=== PATIENT | male | born 2000 | race Caucasian/White ===

== ENCOUNTER 2023-03-31 20:08 | Emergency (ER) | payer OTHER ==
[2023-03-31] MEDS ORDERED: Morphine 4 MG/ML VIAL ONE (20:56)
[2023-03-31] MEDS ORDERED: PROPOFOL 20 ML ONE (21:15)
== END 2023-03-31 22:20 | disposition home or self-care (01) ==
LOC: CSHERS 20:08
DX: S43.015A Anterior dislocation of left humerus, initial encounter (principal); W19.XXXA Unspecified fall, initial encounter; Y93.22 Activity, ice hockey
CPT/HCPCS: 23650; 96374; 99152; J2270; J2704